=== PATIENT | female | born 1965 | race Caucasian/White ===

== ENCOUNTER 2017-05-17 12:43 | Emergency (ER) | payer OTHER ==
[~2017-05-17] VITALS: Ht 167.6 cm; Wt 113.4 kg
[~2017-05-17 12:43] MED LIST: ACYCLOVIR 400400 MG PO; ASPIR 8181 MG; ASPIRIN EC81 M1 PO; ASPIRIN81 M2 PO; AUGMENTIN 875-1 EACH PO; AUGMENTIN 875875 MG PO; BACTRIM DS TAB1 EACH PO; ESTRACE2 MG PO; FLEXERIL; FLEXERIL PO; FLONASE 0.05%50 MCG NASAL; LEVOTHYROXIN0.075 MG PO; LEVOTHYROXINE0.05 MG PO; LISINOPRIL10 MG PO; LISINOPRIL20 MG PO; METHADONE HCL 110 M1 PO; NABUMETONE 750750 M1 PO; NEURONTIN 300300 M1 PO; OXYCODONE HCL15 MG PO; OXYCONTIN15 MG PO; PRISTIQ100 MG PO; PROZAC20 MG; PROZAC20 MG PO; PROZAC40 MG PO; RELAFEN750 MG PO; REMERON15 MG PO; TIZANIDINE HCL4 MG PO; TOPROL XL50 MG PO; TRAMADOL 50 MG50 MG PO; TRAZODONE 150150 M1 PO; TRAZODONE HCL100 MG PO; UNICOMPLEX M TA1 TA1; UNICOMPLEX M TA1 TA1 PO; VENTOLIN HFA 1818 GM INH; VITAMIN D 5050000 I1; WELLBUTRIN SR150 MG; WELLBUTRIN SR150 MG PO; XANAX 0.5 MG0.5 MG PO; XANAX1 MG; XARELTO15 MG PO; XARELTO20 MG PO; ZANAFLEX4 M1 PO; ZANAFLEX4 MG PO; ZOCOR20 MG PO; ZOFRAN ODT4 MG PO
[2017-05-17] MEDS ORDERED: ASPIR 8181 MG PO (13:20)
[2017-05-17] MEDS ORDERED: NABUMETONE 750750 M1 PO (13:22)
[2017-05-17] MEDS ORDERED: TOPROL XL25 MG PO (13:25)
[2017-05-17 14:07] LABS: ABSOLUTE BASOPHILS 0.1 thou/uL (0.0-0.2); ABSOLUTE EOSINOPHILS 0.2 thou/uL (0.0-0.7); ABSOLUTE LYMPHOCYTES 2.8 thou/uL (0.8-5.3); ABSOLUTE MONOCYTES 0.4 thou/uL (0.0-1.2); ABSOLUTE NEUTROPHILS 5.8 thou/uL (1.6-8.1); BASOPHILS 1.1 %; EOSINOPHILS 1.8 %; HEMATOCRIT 36.6 % (37.0-47.0); HEMOGLOBIN 12.5 gm/dL (12.0-15.0); MCH 29.5 pg (26.0-34.0); MCV 86.6 fL (80.0-100.0); MONOCYTES 4.5 %; MPV 7.9 fl. (7.2-11.1); NUCLEATED RBCS 0 /100WBC; PLATELET COUNT* 286 thou/uL (150-400); POLYS 62.6 %; RBC 4.23 mil/uL (4.20-5.00); RDW-CV 13.4 % (10.5-14.5); WBC 9.2 thou/uL (4.0-11.0)
[2017-05-17 14:14] LABS: ANION GAP 8 mmol/L (7-16); BUN 7 mg/dL (7-18); CALCIUM 8.8 mg/dL (8.5-10.1); CHLORIDE 106 mmol/L (98-107); CO2 29 mmol/L (21-32); GLUCOSE 205 mg/dL (70-99); POTASSIUM 4.2 mmol/L (3.5-5.1); SODIUM 143 mmol/L (136-145)
[2017-05-17 14:21] LABS: ALKALINE PHOSPHATASE 260 U/L (46-116); SGOT 55 U/L (15-37); SGPT 52 U/L (30-65); TOTAL PROTEIN 7.9 g/dL (6.4-8.2); TROPONIN-I LEVEL <0.06 ng/mL (<0.06)
[2017-05-17 14:58] VITALS: BP 104/65
--- NOTE | 2017-05-17 15:10 | EKG ---
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 05/17/17 1509 1247 1247 Constantin Trammell MD, FAC /EPI
== END 2017-05-17 14:59 | disposition home or self-care (01) ==
LOC: M.ERS 12:43
PROVIDERS: Personal Emergency Response Attendant
DX: R00.2 Palpitations (principal); R73.9 Hyperglycemia, unspecified; I10 Essential (primary) hypertension; Z90.49 Acquired absence of other specified parts of digestive tract; Z90.710 Acquired absence of both cervix and uterus; Z88.5 Allergy status to narcotic agent

== ENCOUNTER 2017-08-04 20:34 | Inpatient (IN) | payer OTHER ==
[~2017-08-04] VITALS: Ht 167.6 cm; Wt 107.0 kg
[~2017-08-04 20:34] MED LIST changes: +ASPIR 8181 MG PO; +TOPROL XL25 MG PO
[2017-08-04 20:39] VITALS: BP 227/122
[2017-08-04 21:13] LABS: HEMATOCRIT 41.1 % (37.0-47.0); HEMOGLOBIN 13.8 gm/dL (12.0-15.0); MCH 29.9 pg (26.0-34.0); MCHC 33.6 g/dL (28.0-37.0); MCV 88.7 fL (80.0-100.0); MPV 7.6 fl. (7.2-11.1); NUCLEATED RBCS 0 /100WBC; PLATELET COUNT* 273 thou/uL (150-400); RBC 4.63 mil/uL (4.20-5.00); RDW-CV 14.8 % (10.5-14.5); WBC 13.5 thou/uL (4.0-11.0)
[2017-08-04 21:23] LABS: APTT 24.5 Seconds (25.0-31.3); PROTIME 10.2 Seconds (9.20-11.50)
[2017-08-04 21:44] LABS: ABSOLUTE EOSINOPHILS 0.3 thou/uL (0.0-0.7); ABSOLUTE LYMPHOCYTES 7.7 thou/uL (0.8-5.3); ABSOLUTE MONOCYTES 0.7 thou/uL (0.0-1.2); ABSOLUTE NEUTROPHILS 4.9 thou/uL (1.6-8.1); ANISOCYTOSIS Occasional; PLATELET ESTIMATE ADEQUATE; TOXIC GRANULATION 1+
[2017-08-04 22:22] LABS: ANION GAP 11 mmol/L (7-16); BUN 7 mg/dL (7-18); CALCIUM 9.3 mg/dL (8.5-10.1); CHLORIDE 103 mmol/L (98-107); CO2 28 mmol/L (21-32); CREATININE 0.8 mg/dL (0.6-1.3); GLUCOSE 113 mg/dL (70-99); POTASSIUM 3.7 mmol/L (3.5-5.1); SODIUM 142 mmol/L (136-145)
[2017-08-04 22:32] LABS: ALBUMIN 3.9 g/dL (3.4-5.0); ALKALINE PHOSPHATASE 192 U/L (46-116); LIPASE 95 U/L (73-393); NT-PRO BRAIN NAT PEPTIDE 138 pg/mL (<300); SGOT 63 U/L (15-37); SGPT 82 U/L (30-65); TOTAL BILIRUBIN 0.7 mg/dL (<0.1-1.0); TOTAL PROTEIN 8.2 g/dL (6.4-8.2); TROPONIN-I LEVEL <0.06 ng/mL (<0.06)
[2017-08-05] VITALS (8 sets, daily range): BP systolic 81–197; BP diastolic 44–110
--- NOTE | 2017-08-05 12:40 | 2DMMODE ---
[place] [address] 2 D/M-MODE ECHOCARDIOGRAM Name: JUSTIN HIGGINSJd Marrero Room: [address] Gary Maldonado#: [id number] Admission: 08/04/17 Attend Phys: Breezy Lang Discharge: Date of : 61 Date of Service: 08/05/17 1240 Report #: [id number] THIS REPORT FOR: //name// APPROVED REPORT Study performed: 08/05/2017 10:02:50 EXAM: Comprehensive 2D, Doppler, and color-flow Echocardiogram Patient Location: In-Patient Room #: 230 Status: routine BSA: 2.15 HR: 81 bpm BP: 163/84 mmHg Rhythm: NSR Other Information Study Quality: Good Indications Pulmonary Embolism Chest Pain 2D Dimensions LVEF(%): 71.53 (>50%) IVSd: 12.29 (7-11mm) LVOT Diam: 22.57 (18-24mm) LVDd: 42.79 mm PWd: 11.94 (7-11mm) Ascending Ao: 30.36 (22-36mm) LVDs: 25.47 (25-40mm) Aortic Root: 33.75 mm [place]'s LVEF: 71.53 % Volumes Left Atrial Volume (Systole) LA ESV Index: 22.60 mL/m2 Aortic Valve AoV Peak Angelito.: 1.17 m/s AO Peak Gr.: 5.45 mmHg LVOT Max P.69 mmHg AO Mean Gr.: 3.12 mmHg LVOT Mean P.62 mmHg LVOT Max V: 0.96 m/s AO V2 VTI: 26.71 cm LVOT Mean V: 0.58 m/s OLMAN (VTI): 2.80 cm2 LVOT V1 VTI: 18.66 [place] [address] 2 D/M-MODE ECHOCARDIOGRAM Name: LAWRENCE HIGGINS Room: [address] MEulaliaREulalia#: [id number] Admission: 08/04/17 Attend Phys: Breezy Lang Discharge: Date of : 61 Date of Service: 08/05/17 1240 Report #: [id number] E/A Ratio: 1.00 MV Decel. Time: 244.49 ms MV E Max Angelito.: 0.54 m/s MV PHT: 70.90 ms MVA (PHT): 3.10 cm2 TDI E/Lateral E': 6.00 E/Medial E': 4.91 Medial E' Angelito.: 0.11 m/s Lateral E' Angelito.: 0.09 m/s Pulmonary Valve PV Peak Angelito.: 0.78 m/s PV Peak Gr.: 2.45 mmHg Tricuspid Valve TR Peak Gr.: 20.45 mmHg RVSP: 25.00 mmHg Left Ventricle The left ventricle is normal size. There is normal LV segmental wall motion. There is normal left ventricular wall thickness. Left ventricular systolic function is normal. The left ventricular ejection fraction is within the normal range. LVEF is 60-65%. The left ventricular diastolic function is normal. Right Ventricle The right ventricle is normal size. The right ventricular systolic function is normal. Atria The left atrium size is normal. The right atrium size is normal. Aortic Valve The aortic valve is normal in structure. No aortic regurgitation is present. There is no aortic valvular stenosis. Mitral Valve The mitral valve is normal in structure. There is no mitral valve regurgitation noted. No evidence of mitral valve stenosis. Tricuspid Valve The tricuspid valve is normal in structure. Mild tricuspid regurgitation. The RVSP is ____25___ mmHg. Pulmonic Valve The pulmonary valve is normal in structure. [place] [address] 2 D/M-MODE ECHOCARDIOGRAM Name: WENDIE HIGGINSNDA Janes Room: [address] M.R.#: [id number] Admission: 08/04/17 Attend Phys: Breezy Lang Discharge: Date of : 61 Date of Service: 08/05/17 1240 Report #: [id number] valvular regurgitation. Great Vessels The aortic root is normal in size. IVC is normal in size and collapses with >50% inspiration Pericardium There is no pericardial effusion. <Conclusion> The left ventricle is normal size. There is normal left ventricular wall thickness. Left ventricular systolic function is normal. The left ventricular ejection fraction is within the normal range. LVEF is 60-65%. The left ventricular diastolic function is normal. The right ventricle is normal size. The left atrium size is normal. The aortic valve is normal in structure. The mitral valve is normal in structure. The tricuspid valve is normal in structure. Mild tricuspid regurgitation. The RVSP is ____25___ mmHg. IVC is normal in size and collapses with >50% inspiration There is no pericardial effusion. There is normal LV segmental wall motion. <ELECTRONICALLY SIGNED> By: Stephen King MD, FACC 08/05/17 1240 1240 1240 Stephen King MD, FACC /INF
--- NOTE | 2017-08-05 13:04 | EKG ---
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 : 1965 Requested By: Breezy Lang Order Number: [id number] Aldair MD: Stephen King Measurements Intervals [place] Rate: 96 P: 58 NV: 236 QRS: 27 QRSD: 122 T: 76 QT: 365 QTc: 462 Interpretive Statements Sinus rhythm Prolonged NV interval Left atrial enlargement Left ventricular hypertrophy Compared to ECG 05/17/2017 12:47:40 First degree AV block now present Atrial abnormality now present Left ventricular hypertrophy now present Electronically Signed On 08-05-2017 13:04:26 CDT by Stephen King [email or web address] <ELECTRONICALLY SIGNED> By: Stephen King MD, [facility] 08/05/17 1304 41 41 Stephen King MD, [facility] /EPI
--- NOTE | 2017-08-05 13:04 | EKG ---
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[facility] : 1965 Requested By: Triny Sauceda Order Number: [id number] MD: Stephen King Measurements Intervals [place] Rate: 97 P: 53 AK: 184 QRS: 49 QRSD: 99 T: 73 QT: 371 QTc: 472 Interpretive Statements Sinus rhythm Probable left atrial enlargement Nonspecific T abnrm, anterolateral leads Baseline wander in lead(s) V3,V4 Compared to ECG 05/17/2017 12:47:40 No significant changes Electronically Signed On 08-05-2017 13:04:06 CDT by Stephen King [email or web address] <ELECTRONICALLY SIGNED> By: Stephen King MD, [facility] 08/05/17 1304 39 39 Stephen King MD, [facility] /EPI
[2017-08-06] VITALS (10 sets, daily range): BP systolic 79–176; BP diastolic 42–82
[2017-08-06 04:33] LABS: HEMATOCRIT 36.5 % (37.0-47.0); HEMOGLOBIN 12.1 gm/dL (12.0-15.0); MCH 29.8 pg (26.0-34.0); MCHC 33.2 g/dL (28.0-37.0); MCV 89.8 fL (80.0-100.0); MPV 7.8 fl. (7.2-11.1); RBC 4.07 mil/uL (4.20-5.00); RDW-CV 15.8 % (10.5-14.5); WBC 8.7 thou/uL (4.0-11.0)
[2017-08-06 04:51] LABS: ALBUMIN 2.9 g/dL (3.4-5.0); CALCIUM 8.6 mg/dL (8.5-10.1); CREATININE 1.4 mg/dL (0.6-1.3); MAGNESIUM 2.1 mg/dL (1.8-2.4); POTASSIUM 4.2 mmol/L (3.5-5.1); TOTAL BILIRUBIN 0.6 mg/dL (<0.1-1.0); TOTAL PROTEIN 6.2 g/dL (6.4-8.2)
[2017-08-07] VITALS (9 sets, daily range): BP systolic 169–203; BP diastolic 40–107
[2017-08-07] MEDS ORDERED: XARELTO15 MG PO (13:08)
[2017-08-07] MEDS ORDERED: ZANAFLEX4 MG PO (13:08)
[2017-08-08] VITALS: BP 177/106
[2017-08-08 03:38] VITALS: BP 193/110
[2017-08-08 08:00] VITALS: BP 169/85
[2017-08-08 12:00] VITALS: BP 145/88
[2017-08-08] MEDS ORDERED: LOPRESSOR25 PO (12:30)
== END 2017-08-08 13:15 | disposition home or self-care (01) | DRG 175 ==
LOC: M.ERS 20:34 → M.2W 23:50 → M.TBA-ER 23:50 → M.2W 08-05 00:52
PROVIDERS: Internal Medicine; Personal Emergency Response Attendant; ADMIT Internal Medicine
DX: I26.99 Other pulmonary embolism without acute cor pulmonale (principal); G93.40 Encephalopathy, unspecified; N17.0 Acute kidney failure with tubular necrosis; I95.9 Hypotension, unspecified; I10 Essential (primary) hypertension; G89.29 Other chronic pain; F41.9 Anxiety disorder, unspecified; F32.9 Major depressive disorder, single episode, unspecified; M54.9 Dorsalgia, unspecified; R26.9 Unspecified abnormalities of gait and mobility; Z90.49 Acquired absence of other specified parts of digestive tract; Z90.710 Acquired absence of both cervix and uterus; Z86.711 Personal history of pulmonary embolism; Z79.899 Other long term (current) drug therapy; Z79.82 Long term (current) use of aspirin; Z88.8 Allergy status to other drugs, medicaments and biological substances; Z80.8 Family history of malignant neoplasm of other organs or systems; Z82.49 Family history of ischemic heart disease and other diseases of the circulatory system; Z81.8 Family history of other mental and behavioral disorders; Z79.01 Long term (current) use of anticoagulants

== ENCOUNTER → 2018-02-09 | Outpatient (CLI) | payer OTHER ==
[~2018-02-09] MED LIST changes: +LOPRESSOR25 PO
== END ==
LOC: M.RAD 11:50
DX: Z12.31 Encounter for screening mammogram for malignant neoplasm of breast (principal)

== ENCOUNTER → 2018-12-19 | Outpatient (CLI) | payer OTHER | LOC: M.WC 08:00 | DX: R21 Rash and other nonspecific skin eruption (principal); L30.8 Other specified dermatitis; G89.4 Chronic pain syndrome; G47.30 Sleep apnea, unspecified; G62.9 Polyneuropathy, unspecified; G47.00 Insomnia, unspecified; I10 Essential (primary) hypertension; J45.909 Unspecified asthma, uncomplicated; F41.9 Anxiety disorder, unspecified; F32.9 Major depressive disorder, single episode, unspecified; Z86.711 Personal history of pulmonary embolism; Z90.49 Acquired absence of other specified parts of digestive tract; Z90.710 Acquired absence of both cervix and uterus ==

== ENCOUNTER → 2019-03-15 | Outpatient (CLI) | payer MEDICARE | LOC: M.RAD 02-19 10:30 | DX: Z12.31 Encounter for screening mammogram for malignant neoplasm of breast (principal) ==

== ENCOUNTER 2019-08-12 18:56 | Emergency (ER) | payer MEDICARE ==
[~2019-08-12] VITALS: Ht 167.6 cm; Wt 93.7 kg
[~2019-08-12 18:56] MED LIST changes: -NEURONTIN 300300 M1 PO; +NEURONTIN600 MG PO
[2019-08-12] MEDS ORDERED: XARELTO20 MG PO (19:08)
[2019-08-12] MEDS ORDERED: MORPHINE ER PO (19:09)
[2019-08-12] MEDS ORDERED: NABUMETONE 750750 M1 PO (19:10)
[2019-08-12 19:19] LABS: HEMATOCRIT 42.7 % (37.0-47.0); HEMOGLOBIN 14.5 gm/dL (12.0-15.0); MCH 28.4 pg (26.0-34.0); MCHC 33.9 g/dL (28.0-37.0); MCV 83.8 fL (80.0-100.0); MPV 8.2 fl. (7.2-11.1); NUCLEATED RBCS 0 /100WBC; PLATELET COUNT* 312 thou/uL (150-400); RDW-CV 14.1 % (10.5-14.5); WBC 14.1 thou/uL (4.0-11.0)
[2019-08-12 19:28] LABS: CALCIUM 9.1 mg/dL (8.5-10.1); CREATININE 1.1 mg/dL (0.6-1.3); POTASSIUM 3.3 mmol/L (3.5-5.1)
[2019-08-12 19:30] LABS: PROTIME 10.4 Seconds (9.20-11.50)
[2019-08-12 19:32] LABS: URINE BILIRUBIN NEGATIVE (Negative); URINE BLOOD NEGATIVE (Negative); URINE CLARITY CLEAR; URINE COLOR YELLOW; URINE GLUCOSE-RANDOM NEGATIVE (Negative); URINE KETONES NEGATIVE (Negative); URINE LEUKOCYTES-REFLEX NEGATIVE (Negative); URINE NITRITE-REFLEX NEGATIVE (Negative); URINE PROTEIN TRACE (Negative); URINE UROBILINOGEN 0.2 E.U./dl (0.2-1.0)
[2019-08-12 19:36] LABS: ABSOLUTE EOSINOPHILS 0.3 thou/uL (0.0-0.7); ABSOLUTE LYMPHOCYTES 10.3 thou/uL (0.8-5.3); ABSOLUTE MONOCYTES 0.4 thou/uL (0.0-1.2); ABSOLUTE NEUTROPHILS 3.1 thou/uL (1.6-8.1)
[2019-08-12 19:37] LABS: ATYPICAL LYMPHS 43 %; PLATELET ESTIMATE ADEQUATE
[2019-08-12 19:38] LABS: ALBUMIN 4.3 g/dL (3.4-5.0); TOTAL BILIRUBIN 0.8 mg/dL (<0.1-1.0); TOTAL PROTEIN 8.9 g/dL (6.4-8.2)
[2019-08-12] MEDS ORDERED: PRINIVIL20 M1 PO (22:24)
[2019-08-12 22:37] VITALS: BP 179/104
--- NOTE | 2019-08-13 11:22 | EKG ---
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
== END 2019-08-12 22:37 | disposition home or self-care (01) ==
LOC: M.ERS 18:56
PROVIDERS: Emergency Medicine
DX: R07.89 Other chest pain (principal); R10.13 Epigastric pain; I10 Essential (primary) hypertension; G89.29 Other chronic pain; F32.9 Major depressive disorder, single episode, unspecified; Z88.5 Allergy status to narcotic agent; Z88.8 Allergy status to other drugs, medicaments and biological substances; Z79.899 Other long term (current) drug therapy; Z90.49 Acquired absence of other specified parts of digestive tract; Z98.890 Other specified postprocedural states; Z86.711 Personal history of pulmonary embolism

== ENCOUNTER → 2020-03-19 | Outpatient (CLI) | payer MEDICARE ==
[~2020-03-19] MED LIST changes: +MORPHINE ER PO; +PRINIVIL20 M1 PO
== END ==
LOC: M.RAD 10:50
PROVIDERS: ATTEND Internal Medicine
DX: Z12.31 Encounter for screening mammogram for malignant neoplasm of breast (principal)

== ENCOUNTER → 2020-10-23 | Outpatient (CLI) | payer MEDICARE | LOC: M.RAD 10-13 16:10 | PROVIDERS: ATTEND Internal Medicine | DX: R19.05 Periumbilic swelling, mass or lump (principal); Z78.0 Asymptomatic menopausal state; Z90.710 Acquired absence of both cervix and uterus; Z90.79 Acquired absence of other genital organ(s); Z90.722 Acquired absence of ovaries, bilateral ==

== ENCOUNTER → 2021-02-04 | Outpatient (CLI) | payer MEDICARE | LOC: M.ULTRA 02-03 08:00 | PROVIDERS: ATTEND Internal Medicine | DX: R79.89 Other specified abnormal findings of blood chemistry (principal); Z90.49 Acquired absence of other specified parts of digestive tract ==